=== PATIENT | male | born 1945 | race Caucasian/White ===

== ENCOUNTER 2016-08-05 19:24 | Emergency (ER) | payer MEDICARE ==
--- NOTE | 2016-08-05 21:25 | ED NURSING NOTES ---
Clinical Report - Nurses [facility] [address] [place] [address] 08/05/2016 19:27 Patient: KARIAN BABB TRIAGE Triage time 19:44 Ramon 2016. Acuity: LEVEL 4. Chief Complaint: Location of symptoms- right thumb (laceration). Alert. No acute distress. BELKYS COMA SCORE: Belkys Coma Scale: 15- eyes open spontaneously (4); best verbal response- oriented x 4 (5); best motor response- obeys commands (6). --19:57 Deepa Vitale R.N. 19:54 08/05/16. BP: 161/80. HR: 62. RR: 16. O2 saturation: 99%. Temp: 98.5 F. Pain level now: 06/27. --19:57 Deepa Vitale R.N. Weight: 74.3 kg stated. Height/Length: 69 inches Per Patient. BMI: 24.2. --19:56 Deepa Vitale R.N. Medications None. --21:52 Deepa Vitale R.N. Allergies None. --21:52 Deepa Vitale R.N. History Arrived by private vehicle. Historian: patient. Injury occurred. This occurred today. ( cutting carrots and cut the tip of his left thumb,). Treatment PHONE SPECIALIST: Applied bandage. PAST MEDICAL HX: Tetanus status: up-to-date. Immunizations: up-to-date. SOCIAL HX: Never smoker. Occasional alcohol use. No drug use. No infectious disease exposure. SELF HARM ASSESSMENT: A self harm assessment was performed. The patient answered "no" to the question "Do you have thoughts of harming or killing yourself?". FALL RISK ASSESSMENT: Fall risk assessment completed. No fall risk identified. NUTRITIONAL RISK ASSESSMENT: The nutritional risk assessment revealed no deficiencies. FUNCTIONAL ASSESSMENT: Functional assessment: no impairments noted. LEARNING NEEDS ASSESSMENT: The learning needs assessment revealed no barriers. ABUSE ASSESSMENT: Abuse assessment: The patient was asked "Do you feel safe in your home?". SKIN INTEGRITY ASSESSMENT: Skin integrity risk assessment completed. No skin integrity risk identified. --19:57 Deepa Vitale R.N. Interventions ID band on patient. To room. --19:57 Deepa Vitale R.N. PHYSICAL ASSESSMENT Ambulatory to room. GENERAL / NEURO / PSYCH: Oriented X 4. Alert. Appears in no acute distress. EXTREMITIES: Extremities exhibit normal ROM. Neuro-vascular status intact to the extremity. No upper extremity edema. Tip of left thumb: subcutaneous 1.0 cm laceration. SKIN: Skin is warm and dry. --19:58 Deepa Vitale R.N. NURSING PROGRESS NOTES Patient identifiers checked. Call light placed in reach. Bed placed in lowest position. Brakes of bed on. --19:58 Deepa Vitale R.N. Applied dressing consisting of 4x4 gauze, following the application of antibiotic ointment. Secured with tube gauze. --21:50 Deepa Vitale R.N. DISPOSITION / DISCHARGE Departure time: 21:51 Aug 05 2016. Condition at departure: improved. No learning barriers present. Discharge instructions provided and reviewed with the patient. Reviewed referral to a primary care physician for followup. Patient verbalized understanding. Written instructions provided in [employer]. The patient was discharged home. He left the Emergency Department ambulatory and via private vehicle. Patient driving. FALL RISK ASSESSMENT: Fall risk assessment completed. No fall risk identified. --21:51 Deepa Vitale R.N. 21:50 08/05/16. BP: 163/86. HR: 56. RR: 16. O2 saturation: 99%. Pain level now: 0/10. --21:51 Deepa Vitale R.N. Locked/Released at 08/06/2016 11:48 by Deepa Vitale R.N.
--- NOTE | 2016-08-05 21:25 | ED NURSING NOTES ---
Clinical Report - Nurses [facility] [address] [place] [address] 08/05/2016 19:27 Patient: KARINA BABB TRIAGE Triage time 19:44 Ramon 2016. Acuity: LEVEL 4. Chief Complaint: Location of symptoms- right thumb (laceration). Alert. No acute distress. BELKYS COMA SCORE: Belkys Coma Scale: 15- eyes open spontaneously (4); best verbal response- oriented x 4 (5); best motor response- obeys commands (6). --19:57 Deepa Vitale R.N. 19:54 08/05/16. BP: 161/80. HR: 62. RR: 16. O2 saturation: 99%. Temp: 98.5 F. Pain level now: 06/27. --19:57 Deepa Vitale R.N. Weight: 74.3 kg stated. Height/Length: 69 inches Per Patient. BMI: 24.2. --19:56 Deepa Vitale R.N. Medications None. --21:52 Deepa Vitale R.N. Allergies None. --21:52 Deepa Vitale R.N. History Arrived by private vehicle. Historian: patient. Injury occurred. This occurred today. ( cutting carrots and cut the tip of his left thumb,). 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 PAST MEDICAL HX: Tetanus status: up-to-date. Immunizations: up-to-date. SOCIAL HX: Never smoker. Occasional alcohol use. No drug use. No infectious disease exposure. SELF HARM ASSESSMENT: A self harm assessment was performed. The patient answered "no" to the question "Do you have thoughts of harming or killing yourself?". FALL RISK ASSESSMENT: Fall risk assessment completed. No fall risk identified. NUTRITIONAL RISK ASSESSMENT: The nutritional risk assessment revealed no deficiencies. FUNCTIONAL ASSESSMENT: Functional assessment: no impairments noted. LEARNING NEEDS ASSESSMENT: The learning needs assessment revealed no barriers. ABUSE ASSESSMENT: Abuse assessment: The patient was asked "Do you feel safe in your home?". SKIN INTEGRITY ASSESSMENT: Skin integrity risk assessment completed. No skin integrity risk identified. --19:57 Deepa Vitale R.N. Interventions ID band on patient. To room. --19:57 Deepa Vitale R.N. PHYSICAL ASSESSMENT Ambulatory to room. GENERAL / NEURO / PSYCH: Oriented X 4. Alert. Appears in no acute distress. EXTREMITIES: Extremities exhibit normal ROM. Neuro-vascular status intact to the extremity. No upper extremity edema. Tip of left thumb: subcutaneous 1.0 cm laceration. SKIN: Skin is warm and dry. --19:58 Deepa Vitale R.N. NURSING PROGRESS NOTES Patient identifiers checked. Call light placed in reach. Bed placed in lowest position. Brakes of bed on. --19:58 Deepa Vitale R.N. Applied dressing consisting of 4x4 gauze, following the application of antibiotic ointment. Secured with tube gauze. --21:50 Deepa Vitale R.N. DISPOSITION / DISCHARGE Departure time: 21:51 Aug 05 2016. Condition at departure: improved. No learning barriers present. Discharge instructions provided and reviewed with the patient. Reviewed referral to a primary care physician for followup. Patient verbalized understanding. Written instructions provided in [employer]. The patient was discharged home. He left the Emergency Department ambulatory and via private vehicle. Patient driving. FALL RISK ASSESSMENT: Fall risk assessment completed. No fall risk identified. --21:51 Deepa Vitale R.N. 21:50 08/05/16. BP: 163/86. HR: 56. RR: 16. O2 saturation: 99%. Pain level now: 0/10. --21:51 Deepa Vitale R.N. Locked/Released at 08/06/2016 11:48 by Deepa Vitale R.N.
--- NOTE | 2016-08-05 21:25 | ED CLINICAL REPORT ---
Clinical Report - Physicians/Mid Levels [facility] [address] [place] [address] 08/05/2016 19:27 Patient: KARINA BABB Time Seen: 2049; initial patient contact, initial documentation, patient care assumed. Arrived- By private vehicle. Historian- patient. HISTORY OF PRESENT ILLNESS Chief Complaint: Injury to the left thumb. The injury happened today. Occurred at home. The patient sustained a laceration from a knife. Patient is experiencing mild pain. Patient denies injury to the head or neck. No other injury. REVIEW OF SYSTEMS The patient sustained a laceration. No swelling, tingling, numbness, weakness or foreign body. All systems otherwise negative, except as recorded above. PAST HISTORY Negative. The patient's dominant hand is the right. Tetanus immunization status is up-to-date. SOCIAL HISTORY Never smoker. Occasional alcohol use. No drug use. No recent travel. Is a local resident. FAMILY HISTORY No significant family medical history. ADDITIONAL NOTES The nursing notes have been reviewed with agreement regarding the chief complaint, HPI, ROS, PMH and patient medications and allergies. PHYSICAL EXAM Vital Signs: 08/05/2016 19:54 BP: 161/80. HR: 62. RR: 16. O2 saturation: 99%. Temp: 98.5 F. Pain level now: 5/10. Have been reviewed as normal and appear to be correct. Appearance: Alert. Oriented X3. No acute distress. Head: Head atraumatic. Eyes: Pupils equal, round and reactive to light. Eyes normal inspection. Respiratory: No respiratory distress. Skin: Skin warm and dry. Skin intact. Extremities: Hand injury present. Tip of left thumb: mild tenderness and subcutaneous 1.0 cm laceration. SEE LACERATION PROCEDURE NOTE #1. No erythema, swelling, puncture wound or foreign body. No subungual hematoma, nail avulsion, exposed bone or loss of the nail bed on the left thumb or tip amputation of the left thumb. No wrist injury. Hand and wrist exam otherwise negative. Extremities otherwise negative. Neuro, Vascular and Tendons: Vascular status intact. Sensation intact. Motor intact. Tendon function intact. Neuro: Oriented X 3. No motor deficit. No sensory deficit. Note: isolated injury to thumb. PROGRESS AND PROCEDURES Laceration Repair: Location: left thumb. Length: 1.0cm. Complexity: simple (local anesthesia used and sutured). Wound depth/shape- curved, subcutaneous and linear and involving fascia. Wound is clean. No contamination, foreign body or contused tissue present. No tissue loss. Distal neuro/vascular/tendon status normal. Tendon not examined. No tendon deficit or laceration or tendon injury. Anesthesia provided by digital block using 1% lidocaine and 0.50% Marcaine (3 mL). Prepped with Betadine. Wound explored, cleansed and examined to the base in bloodless field with normal saline. Wound not debrided. No foreign material removed. Closure of skin: interrupted 4-0 nylon (4 sutures). Post-procedure: he is stable and there are no complications. Bleeding is controlled and neuro-vascular status is intact distal to the wound. Dressing applied. (per nursing staff, see other notes). Tetanus immunization up-to-date. Estimated blood loss: 5 mL. Patient counseled in person regarding the patient's stable condition and diagnosis. Differential Diagnosis: Other possible considerations: thumb lac, fb, skin avulsion. Above considerations are based on history and physical exam. Differential diagnosis was discussed with patient. Disposition: Discharged home in good and improved condition (21:25). Condition: good and stable. CLINICAL IMPRESSION Single deep laceration to the left thumb.Treatment of laceration not delayed. No infection, foreign body present or left fingernail injury. INSTRUCTIONS Protect wound and keep wound area clean. Soak in warm soapy water twice daily. Apply neosporin twice daily. Sutures should be removed in ten days. Warnings: GENERAL WARNINGS: Return or contact your physician immediately if your condition worsens or changes unexpectedly, if not improving as expected, or if other problems arise. Specifically return if problem worsens. Follow-up: Follow up with your doctor in about ten days even if well and for suture removal and wound check. Call for an appointment. Summary of care provided to patient. Understanding of the discharge instructions verbalized by patient. (Electronically signed by Isaura Mendez A.R.N.P. 08/05/2016 23:34)
--- NOTE | 2016-08-06 11:49 | ED MED RECONCILIATION SUMMARY ---
Patient: KARINA BABB Medication Reconciliation Report [facility] VisitID: [id number] [place] [address] 71y, M Registration Date/Time: 08/05/2016 Weight: 74.3 kg Height/Length: 69 in. BMI: 24.2 ALLERGIES: None The patient's Home Medications are listed below: NONE. The source(s) of the original Home Medication information: Not obtained. The following Medications were given to the patient in the Emergency Department: None. The following Medications were prescribed to the patient: None.
--- NOTE | 2016-08-06 11:49 | ED MED RECONCILIATION SUMMARY ---
Patient: KARINA BABB Medication Reconciliation Report [facility] VisitID: [id number] [place] [address] 71y, M Registration Date/Time: 08/05/2016 Weight: 74.3 kg Height/Length: 69 in. BMI: 24.2 ALLERGIES: None The patient's Home Medications are listed below: NONE. The source(s) of the original Home Medication information: Not obtained. The following Medications were given to the patient in the Emergency Department: None. The following Medications were prescribed to the patient: None.
--- NOTE | 2016-08-06 11:49 | ED DISCHARGE INSTRUCTIONS ---
Patient: KARINA BABB General Instructions [facility] VisitID: [id number] [place] [address] 71y, M Registration Date/Time: 08/05/2016 Single deep laceration to the left thumb.Treatment of laceration not delayed. No infection, foreign body present or left fingernail injury. INSTRUCTIONS Protect wound and keep wound area clean. Soak in warm soapy water twice daily. Apply neosporin twice daily. Sutures should be removed in ten days. Warnings: GENERAL WARNINGS: Return or contact your physician immediately if your condition worsens or changes unexpectedly, if not improving as expected, or if other problems arise. Specifically return if problem worsens. Follow-up: Follow up with your doctor in about ten days even if well and for suture removal and wound check. Call for an appointment. Summary of care provided to patient. Understanding of the discharge instructions verbalized by patient. ADDITIONAL INFORMATION Laceration (All Closures) Alaceration is a cut through the skin. This will usually require stitches (sutures) or tor if it is deep. Minor cuts may be treated with a surgical tape closure orskin glue. Home care The following guidelines will help you care for your laceration at home: Extremity, face, or trunk wounds Keep the wound clean and dry. If a bandage was applied and it becomes wet or dirty, replace it. Otherwise, leave it in place for the first 24 hours. If stitches or tor were used, clean the wound daily. After removing the bandage, wash the area with soap and water. Use a wet cotton swab to loosen and remove any blood or crust that forms. The doctor may prescribe an antibiotic cream or ointment to prevent infection. Do not stop taking this medication until you have finished the prescribed course or the doctor tells you to stop. The doctor may also prescribe medications for pain. Follow the doctors instructions for taking these medications. You may remove the bandage to shower as usual after the first 24 hours, but do not soak the area in water (no swimming) until the stitches or tor are removed. If surgical tape was used, keep the area clean and dry. If it becomes wet, blot it dry with a towel. If skin glue was used, do not scratch, rub, or pick at the adhesive film. Do not place tape directly over the film. Do not apply liquid, ointment, or creams to the wound while the film is in place. Do not clean the wound with peroxide and do not apply ointments. Avoid activities that cause heavy sweating until the film has fallen off. Protect the wound from prolonged exposure to sunlight or tanning lamps. You may shower as usual but do not soak the wound in water (no baths or swimming). The film will fall off by itself in 510 days. Scalp wounds During the first two days, you may carefully rinse your hair in the shower to remove blood, glass or dirt particles. After two days, you may shower and shampoo your hair normally. Do not soak your scalp in the tub or go swimming until the stitches or tor have been removed. Talk with your doctor before applying any antibiotic ointment to the wound. Mouth wounds Eat soft foods to reduce pain. If the cut is inside of your mouth, clean by rinsing after each meal and at bedtime with a mixture of equal parts water and hydrogen peroxide (do not swallow!). Or, you can use a cotton swab to directly apply hydrogen peroxide onto the cut. Mouth wounds can be painful when eating. You may use an [id number] local numbing solution for pain relief. If this is not available, you may use any numbing solution for teething babies. You may apply this directly to the sores with a cotton-tip swab or with your finger. Follow-up care Follow up with your health care provider. Most skin wounds heal within ten days. Mouth and facial wounds heal within five days. However, even with proper treatment, a wound infection may sometimes occur. Therefore, you should check the wound daily for signs of infection listed below. Stitches should be removed from the face within five days; stitches and tor should be removed from other parts of the body within 714 days. If dissolving stitches were used in the mouth, these will fall out or dissolve without the need for removal. If tape closures were used, remove them yourself if they have not fallen off after 7 days. Ifskin glue was used, the film will fall off by itself in 510 days. When to seek medical care Get prompt medical attention if any of these occur: Bleeding not controlled by direct pressure Signs of infection, including increasing pain in the wound, increasing wound redness or swelling, or pus coming from the wound Fever of 100.4F (38C) or higher, or as directed by your health care provider Stitches or tor come apart or fall out or surgical tape falls off before 7 days Wound edges re-open Laceration, Extremity (Sutures, Tor, Or Tape) A laceration is a cut through the skin. This will usually require stitches (sutures) or tor if it is deep. Minor cuts may be treated with surgical tape closures. Home care The following guidelines will help you care for your laceration at home: Keep the wound clean and dry. If a bandage was applied and it becomes wet or dirty, replace it. Otherwise, leave it in place for the first 24 hours, then change it once a day or as directed. If stitches or tor were used, clean the wound daily: After removing the bandage, wash the area with soap and water. Use a wet cotton swab to loosen and remove any blood or crust that forms. After cleaning, keep the wound clean and dry. Talk with your doctor before applying any antibiotic ointment to the wound. Reapply the bandage. You may remove the bandage to shower as usual after the first 24 hours, but do not soak the area in water (no swimming) until the stitches or tor are removed. If surgical tape closures were used, keep the area clean and dry. If it becomes wet, blot it dry with a towel. The doctor may prescribe an antibiotic cream or ointment to prevent infection. Do not stop taking this medication until you have finished the prescribed course or the doctor tells you to stop. The doctor may also prescribe medications for pain. Follow the doctors instructions for taking these medications. If you have chronic liver or kidney disease or ever had a stomach ulcer or GI bleeding, talk with your doctor before using these medicines. Follow-up care Follow up with your health care provider. Most skin wounds heal within ten days. However, an infection may sometimes occur despite proper treatment. Therefore, check the wound daily for the signs of infection listed below. Stitches and tor should be removed within 714 days. If surgical tape closures were used, you may remove them after 10 days, if they have not fallen off by then. Notify your doctor if you notice persistent numbness or weakness in the injured extremity. (Note:A radiologist will review any X-rays that were taken. We will notify you of any new findings that may affect your care.) When to seek medical care Get prompt medical attention if any of these occur: Increasing pain in the wound Redness, swelling, or pus coming from the wound Fever of 100.4F (38C) or higher, or as directed by your health care provider If stitches or tor come apart or fall out before your next appointment If the surgical tape closures fall off within seven days, or the wound edges re-open Bleeding not controlled by direct pressure You have been given the following additional information: Laceration, All Laceration, Extrem (Suture, Staple, Or Tape) (Electronically signed by Isaura Mendez A.R.N.P. 08/05/2016 23:34)
--- NOTE | 2016-08-06 11:49 | ED MAR SUMMARY ---
..... Medication Administration Record [facility] [address] [place], [place] [id number] Patient: KARINA BABB Visit ID: [id number] 71y, M Weight: 74.3 kg Height/Length: 69 in BMI: 24.2 ALLERGIES: None
--- NOTE | 2016-08-06 11:49 | ED MAR SUMMARY ---
..... Medication Administration Record [facility] [address] [place], [place] [id number] Patient: KARINA BABB Visit ID: [id number] 71y, M Weight: 74.3 kg Height/Length: 69 in BMI: 24.2 ALLERGIES: None
== END 2016-08-05 21:47 | disposition home or self-care (01) ==
LOC: ED SRH 19:24
DX: S61.012A Laceration without foreign body of left thumb without damage to nail, initial encounter (principal); W26.0XXA Contact with knife, initial encounter; Y93.G3 Activity, cooking and baking; Y92.009 Unspecified place in unspecified non-institutional (private) residence as the place of occurrence of the external cause